=== PATIENT | female | born 1955 | race Caucasian/White ===

== ENCOUNTER 2020-06-21 08:08 | Emergency (ER) | payer BC, SELFPAY ==
[2020-06-21 09:01] LABS: #Eosinphils 0.1 thou/uL (0.0-0.7); #Lymphocytes 1.8 thou/uL (1.20-3.40); #Monocytes 0.9 thou/uL (0.11-0.59); #Neutrophils 4.4 thou/uL (1.40-6.50); %Basophils 0.6 % (0.0-1.0); %Eosinophils 1.7 % (0.0-10.0); %Lymphocytes 24.2 % (21.0-51.0); %Monocytes 12.4 % (0.0-10.0); %Neutrophils 61.1 % (42.0-75.0); Hemoglobin 13.7 g/dL (12.0-16.0); Mean Corpuscular Hemoglobin 30.6 pg (27.0-31.0); Mean Corpuscular Volume 92.5 fL (78.0-98.0); Platelet Count 235 thou/uL (130-400); RBC Distribution Width 12.8 % (11.5-14.5); Red Blood Cell (RBC) Count 4.47 mill/uL (4.20-5.40); White Blood Cell (WBC) Count 7.3 thou/uL (4.8-10.8)
[2020-06-21] MEDS ORDERED: Ondansetron PF 4 MG/2 ML Vial ONE (09:21)
[2020-06-21] MEDS ORDERED: Morphine 4 MG/ML VIAL ONE (09:21)
[2020-06-21 09:22] LABS: ALT (SGPT) 16 U/L (8-55); AST (SGOT) 9 U/L (5-34); Albumin 3.8 g/dL (3.4-4.8); Alkaline Phosphatase 77 U/L (40-110); Anion Gap 15 mmol/L (10-20); BUN (Urea Nitrogen) 10 mg/dL (9.8-20.1); Calc. Creatinine Clearance 0 mL/min (70-130); Calcium 8.6 mg/dL (7.8-10.44); Carbon Dioxide 23 mmol/L (23-31); Chloride 103 mmol/L (98-107); Globulin 2.6 g/dL (2.4-3.5); Glucose 263 mg/dL (80-115); Lipase 11 U/L (8-78); Potassium 3.8 mmol/L (3.5-5.1); Protein, Total 6.4 g/dL (6.0-8.3); Sodium 137 mmol/L (136-145)
[2020-06-21 10:16] LABS: Bacteria/HPF None Seen HPF (None Seen); Bilirubin Negative (Negative); Blood, Urine Negative (Negative); Clarity Clear (Clear); Glucose, Urine (Dipstick) Greater than 1000 mg/dL (Negative); Ketone, Urine Negative (Negative); Leukocyte 500 Leu/uL (Negative); Nitrite Negative (Negative); Protein, Urine (Dipstick) Negative (Neg-Trace); Specific Gravity, Urine 1.024 (1.002-1.036); Urobilinogen Normal mg/dL (Less than 2); WBC/HPF 21-50 HPF (0-3); pH, Urine 5.5 (5.0-9.0)
--- NOTE | 2020-06-21 10:30 | ULT ---
Sonogram right upper quadrant HISTORY: Right upper quadrant pain. FINDINGS: Gallbladder is distended to 12.4 cm. Along the posterior wall or 2 non-shadowing, non-mobil e echogenic foci that are 0.7 cm and 0.4 cm greatest length. No gallbladder wall thickening or pericholecystic fluid. Patient was reportedly not tender over the gallbladder fossa at the time of th e exam. Common duct is 0.4 cm. Liver is unremarkable without focal mass or intrahepatic biliary dilatation. No free fluid. IMPRESSION : Prominent gallbladder distention without other findings of acute cholecystitis. No evidence of centra l biliary obstruction. The 2 small lesions along the posterior gallbladder wall are favored to represent small gallbladder wall polyps (as opposed to non-shadowing, adherent gallstones). Consider radionucleotide hepatobiliary scan to evaluate for patency of the cystic duct.
== END 2020-06-21 11:15 | disposition home or self-care (01) ==
LOC: ERS 08:08
DX: K80.50 Calculus of bile duct without cholangitis or cholecystitis without obstruction (principal); N39.0 Urinary tract infection, site not specified; Z79.899 Other long term (current) drug therapy; Z79.82 Long term (current) use of aspirin; M10.9 Gout, unspecified; E11.9 Type 2 diabetes mellitus without complications; E03.9 Hypothyroidism, unspecified; I10 Essential (primary) hypertension
CPT/HCPCS: 76705; 80053; 81003; 81015; 83690; 85025; 96374; 96375; J2270; J2405

== ENCOUNTER 2022-09-21 06:15 | Inpatient (IN) | payer OTHER ==
[2022-09-21] MEDS ORDERED: Milk Of Magnesia 30 ML UDCUP PO PRN (07:45)
[2022-09-21] MEDS ORDERED: Zolpidem Tartrate 5 MG TAB PO PRN (07:45)
[2022-09-21] MEDS ORDERED: Nitroglycerin 0.4 MG TAB (25 Tab Bottle) SL PRN (07:45)
[2022-09-21] MEDS ORDERED: Mag-Al 1200 mg/1200 mg/30 ML UDCUP PO PRN (07:45)
[2022-09-21] MEDS ORDERED: traMADol HCl 50 MG TAB PO PRN (07:45)
[2022-09-21 09:01] LABS: CKMB 22.1 ng/mL (0-6.6)
[2022-09-21 09:02] LABS: Troponin I 1.531 ng/mL (< 0.028)
[2022-09-21] MEDS: Aspirin Chewable 81 MG TAB PO SCH (09:37)
[2022-09-21] MEDS ORDERED: Iopamidol 370 76% 100 ML VIAL ONE (11:31)
[2022-09-21 14:39] LABS: CKMB 71.7 ng/mL (0-6.6)
[2022-09-21 14:53] LABS: Troponin I 12.884 ng/mL (< 0.028)
[2022-09-21] MEDS ORDERED: Sacubitril 24MG/Valsartan 26 MG TAB PO SCH (15:45)
[2022-09-22 05:08] VITALS: BMI 42.5
[2022-09-22 05:49] LABS: #Eosinphils 0.1 thou/uL (0.0-0.7); #Lymphocytes 2.1 thou/uL (1.20-3.40); #Neutrophils 5.4 thou/uL (1.40-6.50); %Basophils 0.3 % (0.0-1.0); %Lymphocytes 24.5 % (21.0-51.0); %Monocytes 11.4 % (0.0-10.0); %Neutrophils 62.9 % (42.0-75.0); Hemoglobin 13.1 g/dL (12.0-16.0); Mean Corpuscular HGB CONC 35.2 g/dL (32.0-36.0); Mean Corpuscular Hemoglobin 32.7 pg (27.0-31.0); Mean Corpuscular Volume 93.1 fl (78.0-98.0); Mean Platelet Volume 8.3 fL (7.4-10.4); Platelet Count 219 10x3/uL (130-400); RBC Distribution Width 12.7 % (11.5-14.5); White Blood Cell (WBC) Count 8.6 10x3/uL (4.8-10.8)
[2022-09-22 06:19] LABS: ALT (SGPT) 22 U/L (8-55); AST (SGOT) 32 U/L (5-34); Albumin 3.3 g/dL (3.4-4.8); Alkaline Phosphatase 81 U/L (40-110); Anion Gap 13 mmol/L (10-20); BUN (Urea Nitrogen) 16 mg/dL (9.8-20.1); Bilirubin, Total 0.7 mg/dL (0.2-1.2); Calc. Creatinine Clearance 88 mL/min (70-130); Calcium 8.8 mg/dL (7.8-10.44); Carbon Dioxide 23 mmol/L (23-31); Chloride 105 mmol/L (98-107); Estimated GFR 56; Globulin 2.5 g/dL (2.4-3.5); Glucose 346 mg/dL (80-115); Protein, Total 5.8 g/dL (5.8-8.1); Sodium 137 mmol/L (136-145)
[2022-09-22] MEDS: Aspirin Chewable 81 MG TAB PO SCH (08:15)
[2022-09-22] MEDS: Famotidine 20 MG TAB PO SCH (08:15)
[2022-09-22] MEDS ORDERED: Dextrose 50% Abboject 50 ML SYRINGE SLOW IVP PRN (12:48)
[2022-09-22] MEDS ORDERED: Dextrose 5% in Water 1,000 ML IV PRN (12:48)
[2022-09-22] MEDS: HumaLOG 300 UNITS/3 ML VIAL SC PRN ×3 (13:06→21:39)
[2022-09-22] MEDS ORDERED: TICAGRELOR 90 MG TABLET PO SCH (13:45)
[2022-09-22] MEDS: TICAGRELOR 90 MG TABLET PO SCH (21:27)
[2022-09-23] MEDS ORDERED: Levothyroxine Sodium 75 MCG TAB PO SCH (06:00)
[2022-09-23] MEDS: HumaLOG 300 UNITS/3 ML VIAL SC PRN ×2 (06:09→08:16)
[2022-09-23 07:01] VITALS: TEMP 98
[2022-09-23] MEDS: Aspirin Chewable 81 MG TAB PO SCH (08:15)
[2022-09-23] MEDS: TICAGRELOR 90 MG TABLET PO SCH (08:15)
[2022-09-23] MEDS: Famotidine 20 MG TAB PO SCH (08:15)
[2022-09-23] MEDS ORDERED: metFORMIN XR 500 MG TAB PO SCH (09:00)
[2022-09-23] MEDS ORDERED: Glimepiride 2 MG TAB PO SCH (09:00)
[2022-09-23] MEDS ORDERED: Allopurinol 100 MG TAB PO SCH (09:00)
[2022-09-23 12:48] VITALS: BP 163/92
== END 2022-09-23 14:49 | disposition home or self-care (01) | DRG 247 ==
LOC: CCL 06:15 → CCU 06:34
PROVIDERS: ADMIT Internal Medicine Cardiovascular Disease; ATTEND Internal Medicine Cardiovascular Disease
PROC: 027036Z Dilation of Coronary Artery, One Artery with Three Drug-eluting Intraluminal Devices, Percutaneous Approach (ICD-10-PCS; principal; 2022-09-21)
PROC: 4A023N7 Measurement of Cardiac Sampling and Pressure, Left Heart, Percutaneous Approach (ICD-10-PCS; 2022-09-21)
PROC: B2111ZZ Fluoroscopy of Multiple Coronary Arteries using Low Osmolar Contrast (ICD-10-PCS; 2022-09-21)
PROC: B2151ZZ Fluoroscopy of Left Heart using Low Osmolar Contrast (ICD-10-PCS; 2022-09-21)
PROC: B2181ZZ Fluoroscopy of Left Internal Mammary Bypass Graft using Low Osmolar Contrast (ICD-10-PCS; 2022-09-21)
PROC: B2131ZZ Fluoroscopy of Multiple Coronary Artery Bypass Grafts using Low Osmolar Contrast (ICD-10-PCS; 2022-09-21)
DX: I21.19 ST elevation (STEMI) myocardial infarction involving other coronary artery of inferior wall (principal); I25.10 Atherosclerotic heart disease of native coronary artery without angina pectoris; F41.9 Anxiety disorder, unspecified; F32.A Depression, unspecified; I10 Essential (primary) hypertension; E78.00 Pure hypercholesterolemia, unspecified; E11.9 Type 2 diabetes mellitus without complications; Z86.16 Personal history of COVID-19; Z90.710 Acquired absence of both cervix and uterus; Z95.1 Presence of aortocoronary bypass graft; Z82.49 Family history of ischemic heart disease and other diseases of the circulatory system; Z79.84 Long term (current) use of oral hypoglycemic drugs; Z79.899 Other long term (current) drug therapy; Z79.890 Hormone replacement therapy; Z79.82 Long term (current) use of aspirin; Z88.5 Allergy status to narcotic agent; Z88.8 Allergy status to other drugs, medicaments and biological substances
CPT/HCPCS: 36415; 36416; 80053; 82553; 85025; 85347; 92941; 93005; 93010; 93306; 93458; 93798; C1725; C1769; C1874; C1887; C9606; J1815; Q9967